=== PATIENT | male | born 1995 | race Caucasian/White ===

== ENCOUNTER 2019-05-16 13:32 | Emergency (ER) | payer SELFPAY ==
[2019-05-16] MEDS ORDERED: DIPH,PERTUSS(ACELL),TET VAC/PF 0.5 ML DISP.SYRIN IM ONE (13:41)
[2019-05-16] MEDS ORDERED: Lidocaine 1% 5ml 10 MG/ML VIAL IJ ONE (13:41)
--- NOTE | 2019-05-16 13:41 | ED Physician Documentation ---
General Adult - HISTORIAN Historian: patient - HPI Stated Complaint: laceration to right knee Chief Complaint: Laceration/Recheck/Suture Additional Information: Patient presents to ED with a 2.5 cm laceration to right knee. Patient reports he sustained the injury while jumping out of an airplane today. Patient is unsure of last tetanus vaccination. Onset: hours (1) Timing: still present Severity: moderate - ROS CONST: no problems EYES/ENT: none CVS/RESP: none GI/: none MS/SKIN/LYMPH: none NEURO/PSYCH: denies: headache - PAST HX Past History: none Other History: none Surgeries/Procedures: none Allergies/Adverse Reactions: Allergies Allergy/AdvReac Type Severity Reaction Status Date / Time No Known Allergies Allergy Verified 05/16/19 14:01 Home Medications: Ambulatory Orders Medication Instructions Recorded NK 05/16/19 - SOCIAL HX Smoking History: non-smoker Alcohol Use: none Drug Use: none - FAMILY HX Family History: No - VITAL SIGNS Vital Signs: Vital Signs Temp Pulse Resp BP Pulse Ox 98.0 F 74 18 152/87 98 05/16/19 13:40 05/16/19 13:40 05/16/19 13:40 05/16/19 13:40 05/16/19 13:40 - REVIEWED ASSESSMENTS Nursing Assessment Reviewed: Yes Vitals Reviewed: Yes Procedures Wound Location: lower extremity (right knee) Wound Length: 2.5 cm Wound's Depth, Shape: linear Wound Explored: clean Irrigated w/ Saline (ccs): 200 Anesthesia: 1% Lidocaine Volume of Anesthetic: 5 Wound Debrided: minimal Wound Repaired With: sutures Suture Size/Type: 4:0 Number of Sutures: 4 ED Results Lab/Radiology - Orders Orders: ED Orders Category Date Time Status Apply/change dressing BID Care 05/16/19 13:42 Active Cleanse with NS and Chlorhexid 1T Care 05/16/19 13:41 Active Diph,Pertuss(Acell),Tet Vac/Pf [Adacel] Med 05/16/19 13:41 Discontinued 0.5 ml IM .ONCE ONE Lidocaine 1% 5ml [Xylocaine] Med 05/16/19 13:41 Discontinued 50 mg IJ NOW ONE General Adult Physical Exam - PHYSICAL EXAM GENERAL APPEARANCE: no distress EENT: EL[place] NECK: supple RESPIRATORY: no resp distress, chest non-tender, breath sounds normal CVS: reg rate & rhythm, heart sounds normal ABDOMEN: soft, normal bowel sounds, non-tender BACK: normal inspection SKIN: warm/dry EXTREMITIES: other (2.5 cm laceration right knee, lateral to patella) NEURO: oriented X3, CN's nml as tested, sensation nml, mood/affect nml Discharge Clincal Impression: Laceration of knee Qualifiers: Encounter type: initial encounter Laterality: right Qualified Code(s): S81.011A - Laceration without foreign body, right knee, initial encounter Referrals: Primary Doctor,No [Primary Care Provider] - 2 Days Additional Instructions: 1. Keep wound clean and dry. Wash twice daily with antibacterial soap. Pat dry. 2. No swimming, hot tubs or baths. Showers ok 3. Follow up with PCP in 10 days to have sutures removed 4. Return to ER for new or worsening symptoms Condition: Stable Disposition: 01 HOME, SELF-CARE Decision to Admit: NO Date of Decison to Admit: 05/16/19 Decision Time: 14:10
[2019-05-16 13:43] VITALS: BP 152/87
== END 2019-05-16 14:15 | disposition home or self-care (01) ==
LOC: ED 13:32
DX: S81.011A Laceration without foreign body, right knee, initial encounter (principal); X58.XXXA Exposure to other specified factors, initial encounter; Y93.39 Activity, other involving climbing, rappelling and jumping off; Y92.89 Other specified places as the place of occurrence of the external cause
CPT/HCPCS: 12001; 90471; 90715; 99284